=== PATIENT | female | born 1970 | race Caucasian/White ===

== ENCOUNTER 2019-05-13 11:07 | Observation (INO) | payer OTHER ==
--- NOTE | 2019-05-13 11:51 | ER ---
Nurse's Notes [facility] Name: Ludin Mayes Age: 48 yrs Sex: Female : 1970 Arrival Date: 05/13/2019 Time: 11:12 Bed 23 Private MD: Jose Drew Diagnosis: Other chest pain;Type 2 diabetes mellitus;Essential (primary) hypertension;Abdominal tenderness Presentation: 05/13 11:26 Presenting complaint: Patient states: right-sided chest pain radiating down right arm. aa5 Right lower back pain radiating to right groin. Pt reports pain began today. Reports nausea, denies vomiting. 11:26 Acuity: THEODORE 3 aa5 11:26 Transition of care: patient was not received from another setting of care. Onset of aa5 symptoms was May 13, 2019. Risk Assessment: Do you want to hurt yourself or someone else? Patient reports no desire to harm self or others. Initial Sepsis Screen: Does the patient meet any 2 criteria? No. Patient's initial sepsis screen is negative. Does the patient have a suspected source of infection? No. Patient's initial sepsis screen is negative. Care prior to arrival: None. 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 - Social history:: Smoking status: Patient uses tobacco products, smokes one-half pack cigarettes per day. - Ebola Screening: : No symptoms or risks identified at this time. - Family history:: not pertinent. Screenin:09 Abuse screen: Denies threats or abuse. Denies injuries from another. Nutritional mg2 screening: No deficits noted. Tuberculosis screening: No symptoms or risk factors identified. Fall Risk IV access (20 points). Ambulatory Aid- None/Bed Rest/Nurse Assist (0 pts). Gait- Weak (10 pts.). Assessment: 12:10 General: Appears uncomfortable, Behavior is cooperative, fussy. Pain: Complains of pain mg2 in right mid back Pain radiates to RLQ Pain currently is 10 out of 10 on a pain scale. Quality of pain is described as aching, Pain began gradually, Is intermittent. Neuro: Level of Consciousness is awake, alert, obeys commands, Oriented to person, place, time, situation. Cardiovascular: Capillary refill < 3 seconds Patient's skin is warm and dry. Respiratory: Airway is patent Respiratory effort is even, unlabored, Respiratory pattern is regular, symmetrical. GI: Reports lower abdominal pain, nausea, vomiting. EENT: No signs and/or symptoms were reported regarding the EENT system. Derm: Skin is intact, is healthy with good turgor, Skin is pink, warm \T\ dry. normal. Musculoskeletal: Circulation, motion, and sensation intact. Capillary refill < 3 seconds. 14:05 Reassessment: dr malone at bedside examining the patient . mg2 14:21 Reassessment: called for report to the floor already but patient is for pelvic mg2 ultrasound first prior to moving her to her room. Vital Signs: 11:28 BP 102 / 66; Pulse 72; Resp 18 S; Temp 97.8(TE); Pulse Ox 99% on R/A; Weight 109.77 kg aa5 (R); Height 5 ft. 6 in. (167.64 cm) (R); Pain 10/10; 13:10 BP 112 / 80; Pulse 70; Resp 18; Temp 98(O); Pulse Ox 98% on R/A; mg2 14:06 BP 133 / 76; Pulse 61; Resp 18; Pulse Ox 100% on R/A; mg2 11:28 Body Mass Index 39.06 (109.77 kg, 167.64 cm) aa5 ED Course: 11:12 Patient arrived in ED. mr 11:12 Jose Drew MD is Private Physician. mr 11:25 Arm band placed on. aa5 11:30 Triage completed. aa5 11:30 EKG completed in triage. Results shown to . aa5 11:36 Mike Cabrera MD is Attending Physician. sonia 11:49 Henny Malone MD is Hospitalizing Provider. sonia 11:50 Initial lab(s) drawn, by ky, sent to lab. Inserted saline lock: 20 gauge in right dh3 antecubital area, using aseptic technique. Blood collected. 11:55 Martínez Knapp, PRAFUL is Primary Nurse. mg2 12:11 XRAY Chest (1 view) In Process Unspecified. EDMS 13:09 No provider procedures requiring assistance completed. Patient admitted, IV remains in mg2 place. Patient maintains SpO2 saturation greater than 95% on room air. 13:10 Patient has correct armband on for positive identification. Pulse ox on. NIBP on. mg2 Administered Medications: 12:09 Drug: Zofran 4 mg Route: IVP; Site: right antecubital; mg2 14:04 Follow up: Response: No adverse reaction; Marked relief of symptoms mg2 12:09 Drug: Benadryl 25 mg Route: IVP; Site: right antecubital; mg2 14:04 Follow up: Response: No adverse reaction; Marked relief of symptoms mg2 14:04 Follow up: Response: No adverse reaction; Marked relief of symptoms mg2 12:09 Drug: SOLU-Medrol 125 mg Route: IVP; Site: right antecubital; mg2 14:04 Follow up: Response: No adverse reaction; Marked relief of symptoms mg2 12:10 Drug: morphine 4 mg Route: IVP; Site: right antecubital; mg2 14:05 Follow up: Response: No adverse reaction; Marked relief of symptoms mg2 12:11 Drug: Aspirin 162 mg Route: PO; mg2 14:05 Follow up: Response: No adverse reaction; Marked relief of symptoms mg2 12:12 Drug: NS 0.9% 1000 ml Route: IV; Rate: 125 ml/hr; Site: right antecubital; mg2 14:02 Follow up: IV Status: Infusion continued upon admission mg2 12:25 Drug: Pepcid 20 mg Route: IVP; Site: right antecubital; mg2 14:03 Follow up: Response: No adverse reaction; Marked relief of symptoms mg2 13:00 Drug: Dilaudid 1 mg Route: IVP; Site: right antecubital; mg2 14:03 Follow up: Response: No adverse reaction; Marked relief of symptoms mg2 13:00 Drug: Zofran 4 mg Route: IVP; Site: right antecubital; mg2 14:02 Follow up: Response: No adverse reaction; Marked relief of symptoms mg2 14:01 Drug: Dilaudid 1 mg {Note: ordered by Dr malone.} Route: IVP; Site: right antecubital; mg2 14:22 Follow up: Response: No adverse reaction; Marked relief of symptoms mg2 Outcome: 11:50 Decision to Hospitalize by Provider. [facility] 14:00 Admitted to Tele accompanied by lisa, room 421, with chart, Report called to zeeshan Auguste RN 14:00 Condition: stable 14:00 Instructed on the need for admit, Demonstrated understanding of instructions. mg2 15:06 Patient left the ED. mg2 Signatures: Dispatcher [employer] EDMike Womack MD MD cha Rivera, Mary mr Calderon, Li, RN RN aa5 Vanna Angel 3 Martínez Knapp, RN RN mg2
--- NOTE | 2019-05-13 11:51 | EDPHYS ---
Physician Documentation [facility] Name: Ludin Mayes Age: 48 yrs Sex: Female : 1970 Arrival Date: 05/13/2019 Time: 11:12 Bed 23 Private MD: Jose Drew ED Physician Mike Cabrera HPI: 05/13 11:45 This 48 yrs old Female presents to ER via Ambulatory with complaints of Chest sonia Pain. 11:46 This 48 yrs old Female presents to ER via Ambulatory with complaints of Chest sonia Pain. 11:45 The patient or guardian reports chest pain that is located primarily in the substernal sonia area, anterior chest wall, left. Onset: 1 day(s) ago. The pain radiates to the right arm, 11:46 The patient complains of pain in the right mid back and right low back. The pain sonia radiates to the right mid back and right low back. Onset: The symptoms/episode began/occurred 1 day(s) ago. Modifying factors: The symptoms are alleviated by nothing. the symptoms are aggravated by nothing. The patient presents with pain that is acute, with no known mechanism of injury. The symptoms are located in the right mid back and right low back. 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 - Social history:: Smoking status: Patient uses tobacco products, smokes one-half pack cigarettes per day. - Ebola Screening: : No symptoms or risks identified at this time. - Family history:: not pertinent. ROS: 11:46 Constitutional: Negative for fever, chills, and weight loss, Eyes: Negative for injury, sonia pain, redness, and discharge, ENT: Negative for injury, pain, and discharge, Neck: Negative for injury, pain, and swelling, Cardiovascular: Negative for chest pain, palpitations, and edema, Respiratory: Negative for shortness of breath, cough, wheezing, and pleuritic chest pain, Back: Negative for injury and pain, : Negative for injury, bleeding, discharge, and swelling, MS/Extremity: Negative for injury and deformity, Skin: Negative for injury, rash, and discoloration, Neuro: Negative for headache, weakness, numbness, tingling, and seizure, Psych: Negative for depression, anxiety, suicide ideation, homicidal ideation, and hallucinations, Allergy/Immunology: Negative for hives, rash, and allergies, Endocrine: Negative for neck swelling, polydipsia, polyuria, polyphagia, and marked weight changes. 11:46 Abdomen/GI: Positive for abdominal pain, of the posterior aspect of right lateral abdomen, anterior aspect of right lateral abdomen, right upper quadrant and right lower quadrant. Exam: 11:46 Constitutional: This is a well developed, well nourished patient who is awake, alert, sonia and in no acute distress. Head/Face: Normocephalic, atraumatic. Eyes: Pupils equal round and reactive to light, extra-ocular motions intact. Lids and lashes normal. Conjunctiva and sclera are non-icteric and not injected. Cornea within normal limits. Periorbital areas with no swelling, redness, or edema. ENT: Nares patent. No nasal discharge, no septal abnormalities noted. Tympanic membranes are normal and external auditory canals are clear. Oropharynx with no redness, swelling, or masses, exudates, or evidence of obstruction, uvula midline. Mucous membranes moist. Neck: Trachea midline, no thyromegaly or masses palpated, and no cervical lymphadenopathy. Supple, full range of motion without nuchal rigidity, or vertebral point tenderness. No Meningismus. Chest/axilla: Normal chest wall appearance and motion. Nontender with no deformity. No lesions are appreciated. Cardiovascular: Regular rate and rhythm with a normal S1 and S2. No gallops, murmurs, or rubs. Normal PMI, no JVD. No pulse deficits. Respiratory: Lungs have equal breath sounds bilaterally, clear to auscultation and percussion. No rales, rhonchi or wheezes noted. No increased work of breathing, no retractions or nasal flaring. Abdomen/GI: Soft, non-tender, with normal bowel sounds. No distension or tympany. No guarding or rebound. No evidence of tenderness throughout. Back: No spinal tenderness. No costovertebral tenderness. Full range of motion. Skin: Warm, dry with normal turgor. Normal color with no rashes, no lesions, and no evidence of cellulitis. MS/ Extremity: Pulses equal, no cyanosis. Neurovascular intact. Full, normal range of motion. Neuro: Awake and alert, GCS 15, oriented to person, place, time, and situation. Cranial nerves II-XII grossly intact. Motor strength 5/5 in all extremities. Sensory grossly intact. Cerebellar exam normal. Normal gait. Psych: Awake, alert, with orientation to person, place and time. Behavior, mood, and affect are within normal limits. 11:48 Musculoskeletal/extremity: DVT Exam: No signs of deep vein thrombosis. no pain, no sonia swelling, no tenderness, negative Homans' sign noted on exam, no appreciated bluish discoloration, no erythema, no increased warmth. Vital Signs: 11:28 BP 102 / 66; Pulse 72; Resp 18 S; Temp 97.8(TE); Pulse Ox 99% on R/A; Weight 109.77 kg aa5 (R); Height 5 ft. 6 in. (167.64 cm) (R); Pain 10/10; 13:10 BP 112 / 80; Pulse 70; Resp 18; Temp 98(O); Pulse Ox 98% on R/A; mg2 14:06 BP 133 / 76; Pulse 61; Resp 18; Pulse Ox 100% on R/A; mg2 11:28 Body Mass Index 39.06 (109.77 kg, 167.64 cm) aa5 MDM: 11:36 Patient medically screened. [facility] 11:48 Data reviewed: vital signs, nurses notes, lab test result(s), EKG, radiologic studies, [facility] CT scan, plain films. 05/13 11:37 Order name: Basic Metabolic Panel; Complete Time: 12:38 [facility] 05/13 11:37 Order name: CBC with Diff; Complete Time: 12:38 [facility] 05/13 11:37 Order name: LFT's; Complete Time: 12:38 sonia 05/13 11:37 Order name: Magnesium; Complete Time: 12:38 [facility] 05/13 11:37 Order name: NT PRO-BNP; Complete Time: 12:38 [facility] 05/13 11:37 Order name: PT-INR; Complete Time: 12:38 [facility] 05/13 11:37 Order name: Troponin (emerg Dept Use Only); Complete Time: 12:38 [facility] 05/13 11:37 Order name: XRAY Chest (1 view); Complete Time: 12:38 [facility] 05/13 11:37 Order name: Lipase; Complete Time: 12:38 [facility] 05/13 11:45 Order name: CT Aorta for Dissection [facility] 05/13 11:50 Order name: Urine Culture [facility] 05/13 13:23 Order name: CT EDIN 05/13 13:42 Order name: US Transvaginal Study (Probe): right ovary [facility] 05/13 11:37 Order name: EKG; Complete Time: 11:38 [facility] 05/13 11:37 Order name: Cardiac monitoring; Complete Time: 11:54 [facility] 05/13 11:37 Order name: EKG - Nurse/Tech; Complete Time: 11:54 [facility] 05/13 11:37 Order name: IV Saline Lock; Complete Time: 11:54 [facility] 05/13 11:37 Order name: Labs collected and sent; Complete Time: 11:54 [facility] 05/13 11:37 Order name: O2 Per Protocol; Complete Time: 11:54 [facility] 05/13 11:37 Order name: O2 Sat Monitoring; Complete Time: 11:54 [facility] Administered Medications: 12:09 Drug: Zofran 4 mg Route: IVP; Site: right antecubital; mg2 14:04 Follow up: Response: No adverse reaction; Marked relief of symptoms mg2 12:09 Drug: Benadryl 25 mg Route: IVP; Site: right antecubital; mg2 14:04 Follow up: Response: No adverse reaction; Marked relief of symptoms mg2 14:04 Follow up: Response: No adverse reaction; Marked relief of symptoms mg2 12:09 Drug: SOLU-Medrol 125 mg Route: IVP; Site: right antecubital; mg2 14:04 Follow up: Response: No adverse reaction; Marked relief of symptoms mg2 12:10 Drug: morphine 4 mg Route: IVP; Site: right antecubital; mg2 14:05 Follow up: Response: No adverse reaction; Marked relief of symptoms mg2 12:11 Drug: Aspirin 162 mg Route: PO; mg2 14:05 Follow up: Response: No adverse reaction; Marked relief of symptoms mg2 12:12 Drug: NS 0.9% 1000 ml Route: IV; Rate: 125 ml/hr; Site: right antecubital; mg2 14:02 Follow up: IV Status: Infusion continued upon admission mg2 12:25 Drug: Pepcid 20 mg Route: IVP; Site: right antecubital; mg2 14:03 Follow up: Response: No adverse reaction; Marked relief of symptoms mg2 13:00 Drug: Dilaudid 1 mg Route: IVP; Site: right antecubital; mg2 14:03 Follow up: Response: No adverse reaction; Marked relief of symptoms mg2 13:00 Drug: Zofran 4 mg Route: IVP; Site: right antecubital; mg2 14:02 Follow up: Response: No adverse reaction; Marked relief of symptoms mg2 14:01 Drug: Dilaudid 1 mg {Note: ordered by Dr malone.} Route: IVP; Site: right antecubital; mg2 14:22 Follow up: Response: No adverse reaction; Marked relief of symptoms mg2 Disposition: 05/13/19 11:50 Hospitalization ordered by Henny Malone for Observation. Preliminary diagnosis are Other chest pain, Type 2 diabetes mellitus, Essential (primary) hypertension, Abdominal tenderness. - Bed requested for Telemetry/MedSurg (observation). - Status is Observation. mg2 - Condition is Stable. - Problem is new. - Symptoms have improved. UTI on Admission? No Signatures: Dispatcher [employer] EDMS Meagan Mccain Corey, MD MD cha Calderon, Audri RN RN aa5 Martínez Knapp RN RN mg2 Corrections: (The following items were deleted from the chart) 13:00 11:50 Hospitalization Ordered by Henny Malone MD for Observation. Preliminary diagnosis bd is Other chest pain; Type 2 diabetes mellitus; Essential (primary) hypertension; Abdominal tenderness. Bed requested for Telemetry/MedSurg (observation). Status is Observation. Condition is Stable. Problem is new. Symptoms have improved. UTI on Admission? No. sonia 15:06 13:00 05/13/2019 11:50 Hospitalization Ordered by Henny Malone MD for Observation. mg2 Preliminary diagnosis is Other chest pain; Type 2 diabetes mellitus; Essential (primary) hypertension; Abdominal tenderness. Bed requested for Telemetry/MedSurg (observation). Status is Observation. Condition is Stable. Problem is new. Symptoms have improved. UTI on Admission? No. roc
[2019-05-13] MEDS ORDERED: METHYLPREDNISOLONE 125 MG INJ ONE (11:59)
[2019-05-13] MEDS ORDERED: ASPIRIN EC 81 MG TAB PO ONE (12:00)
[2019-05-13] MEDS ORDERED: MORPHINE 4 MG/ML SYR ONE (12:00)
[2019-05-13] MEDS ORDERED: ONDANSETRON 4 MG/2 ML VIAL ONE ×2 (12:00→12:51)
[2019-05-13] MEDS ORDERED: DIPHENHYDRAMINE 50 MG/ML VIAL ONE (12:00)
[2019-05-13] MEDS ORDERED: FAMOTIDINE 20 MG/2 ML VIAL IV ONE (12:00)
[2019-05-13] MEDS ORDERED: NA CHLORIDE 0.9% 1,000 ML ONE (12:01)
[2019-05-13 12:08] LABS: Basophils % 0.8 % (0-1.3); Hematocrit 37.1 % (36.0-45.0); Lymphocytes % 25.8 % (15.3-44.8); RBC Red Blood Cell Count 4.93 M/uL (3.86-4.86)
[2019-05-13 12:16] LABS: Protime INR 0.94
--- NOTE | 2019-05-13 12:19 | RAD REPORT ---
EXAM DESCRIPTION: RAD - Chest Single View - 05/13/2019 12:11 pm CLINICAL HISTORY: Cough;Chest pain Chest pain. COMPARISON: No comparisons FINDINGS: Portable technique limits examination quality. The lungs are emphysematous but grossly clear. The heart is normal in size. No displaced fractures. IMPRESSION: No acute intrathoracic process suspected.
[2019-05-13 12:26] LABS: ALT/SGPT 24 U/L (12-78); AST/SGOT 15 U/L (15-37); Albumin 4.2 g/dL (3.4-5.0); Alkaline Phosphatase 133 U/L (45-117); BUN Blood Urea Nitrogen 13 mg/dL (7-18); Bicarbonate 23 mmol/L (21-32); Bilirubin Direct 0.1 mg/dL (0-0.2); Bilirubin Total 0.5 mg/dL (0.2-1.0); Glucose Level 122 mg/dL (74-106); Lipase 104 U/L (73-393); Magnesium 1.8 mg/dL (1.8-2.4); NT PRO-BNP 91 pg/mL (<125); Potassium 3.9 mmol/L (3.5-5.1); Protein, Total 9.1 g/dL (6.4-8.2); Sodium Level 130 mmol/L (136-145); Troponin (Emerg Dept Use Only) < 0.02 ng/mL (0.0-0.045)
[2019-05-13] MEDS ORDERED: HYDROMORPHONE HCL 1 MG/ML INJ ONE ×2 (12:51→13:57)
--- NOTE | 2019-05-13 13:18 | RAD REPORT ---
EXAM DESCRIPTION: CT - Angio Aorta For Dissection - 05/13/2019 1:06 pm CLINICAL HISTORY: Chest pain radiating to the back. Dissection;PE COMPARISON: No comparisons TECHNIQUE: CT angiography of the aorta was performed with MIPs. All CT scans are performed using dose optimization technique as appropriate and may include automated exposure control or mA/KV adjustment according to patient size. FINDINGS: A left aortic arch is present with bovine branching pattern of the great vessels.No acute aortic finding is seen such as aneurysm, penetrating ulcer or dissection. The celiac axis, SMA, MEGAN and renal arteries are patent. No evidence of pulmonary embolism. 7 mm noncalcified nodule is present in the superior segment right lower lobe. The lungs are otherwise clear without evidence of nodule, mass or infiltrate. The liver demonstrates mild enlargement, fatty infiltration in a heterogenous enhancement pattern.Cho lecystectomy clips.The spleen, pancreas, adrenal glands and kidneys are within normal limits for aden rial phase imaging. No bowel obstruction, free fluid or abscess.Normal appendix seen.No pathologic enlarged lymphadenopat hy identified.The right ovary appears enlarged measuring up to 7 cm. Hardware is present about the left hip. IMPRESSION: No acute aortic finding is demonstrated. The liver appears enlarged with diffuse fatty infiltration in a heterogenous enhancement pattern. Thi s may indicate underlying hepatic inflammation or infection. Correlation with LFTs suggested. Enlargement of the right ovary is noted measuring up to 7 cm. Follow-up pelvic ultrasound could be ob tained for further workup.
[2019-05-13] MEDS ORDERED: ACETAMINOPHEN 500 MG TAB PO PRN (13:39)
[2019-05-13] MEDS ORDERED: NITROGLYCERIN 0.4 MG/TAB SL PRN (13:39)
[2019-05-13] MEDS ORDERED: MORPHINE 2 MG/ML SYR IV PRN (13:39)
--- NOTE | 2019-05-13 15:25 | RAD REPORT ---
EXAM DESCRIPTION: US - Transvaginal Study Probe - 05/13/2019 2:46 pm CLINICAL HISTORY: Abdominal pain, pelvic pain COMPARISON: CT imaging May 13 2019 TECHNIQUE: Endovaginal sonography was performed. FINDINGS: Retroflexed uterus is identified measuring 9.3 x 4.6 x 5.2 cm. Endometrium is 6 mm. No end ometrial based mass or polyp identifiable. A 2.4 centimeter oval heterogeneous mass is present serosa l margin of the posterior lower uterus. This is most likely a small fibroid. Corresponding finding is seen on the CT study. Left ovary is obscured by bowel. On review of the CT study, a normal left ovary is seen. Right ovary is enlarged measuring 6.7 x 3.5 x 6.4 cm. This enlarged ovary matches the CT study. There are numerous simple and complex cysts within the right ovary. A solid mass of the right ovary is not identifiable. Patient has no prior imaging of the right ovary. These appear to be individual cysts r ather than a single large multi-septated cystic mass. However, in a patient this age, continued close follow-up is needed. IMPRESSION: Right ovary is enlarged containing numerous simple and complex cysts. Solid mass of the right ovary is not identifiable. Right ovary findings appear to be multiple cysts rather than a single complex septated cystic mass. G iven the patient's age, continued close follow-up is needed. Re-evaluation in 2- 3 months is recommen ded. Left ovary was obscured by bowel. CT imaging of the same date showed normal left ovary. Uterus contains a small subserosal fibroid posterior lower uterus.
--- NOTE | 2019-05-13 15:55 | EKG ---
Test Date: 2019-05-13 Test Time: 11:28:51 Panelbeater: TONIA MEASUREMENT RESULTS: Intervals: Rate: 68 ME: 142 QRSD: 78 QT: 428 QTc: 455 [place]: P: 28 ME: 142 QRS: 59 T: 48 INTERPRETIVE STATEMENTS: Sinus rhythm with occasional premature ventricular complexes Low voltage QRS Borderline ECG No previous ECG available for comparison Electronically Signed On 05-13-19 15:54:16 CDT by Heriberto Dee
[2019-05-13] MEDS: FENTANYL CITR 100 MCG/2 ML IV PRN ×2 (15:59→19:55)
[2019-05-13] MEDS: NA CHLORIDE 0.9% 1,000 ML IV SCH (16:00)
[2019-05-13 16:27] VITALS: BMI 39.0
[2019-05-13] MEDS ORDERED: INSULIN -REGULAR HUMAN 50 UNIT/0.5 ML ML SQ SCH (18:00)
[2019-05-13] MEDS ORDERED: HOME MED 1 EA UNK (Pravastatin Sodium [Pravachol] 40 MG) PO SCH (21:00)
[2019-05-13] MEDS ORDERED: METOPROLOL TAR 25 MG TAB PO SCH (21:00)
[2019-05-13] MEDS ORDERED: ZOLPIDEM TARTRATE 10 MG TABLET PO SCH (21:00)
[2019-05-13] MEDS: atenoloL 25 MG TAB PO SCH (21:13)
[2019-05-13] MEDS: ATORVASTATIN 10 MG TAB PO SCH (21:13)
[2019-05-13] MEDS: ESCITALOPRAM 20 MG TAB PO SCH (21:14)
[2019-05-13] MEDS: MONTELUKAST 10 MG TAB PO SCH (21:14)
[2019-05-13] MEDS: INSULIN -REGULAR HUMAN 50 UNIT/0.5 ML ML SQ SCH (21:14)
[2019-05-13] MEDS: ATORVASTATIN 40 MG TAB PO SCH (21:14)
[2019-05-13] MEDS: ZOLPIDEM TARTRATE 10 MG TABLET PO PRN (21:23)
[2019-05-13] MEDS: QUETIAPINE 100MG TAB PO SCH (21:24)
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
[2019-05-14] MEDS: FENTANYL CITR 100 MCG/2 ML IV PRN ×4 (00:14→13:58)
--- NOTE | 2019-05-14 01:31 | HP ---
Date of Admission: 05/13/2019 Primary Care Physician: Dr. Drew Consultants: Dr. Dee, Cardiology. Chief Complaint: Chest pain, substernal and low back pain. History Of Present Illness: The patient is a 48-year-old female with past medical history of hyperte nsion, diabetes, history of PVCs, as well as morbid obesity, who comes in with sudden onset of chest pain in the substernal region radiating to the right shoulder. Patient also reports right flank pain that is radiating toward the front in the pelvis. It should be noted that the patient was in [facility] on April 22, for similar symptoms, was ruled out for ACS and then discharged home. She was found to have low magnesium. The patient's workup revealed a sodium of 130. Her initial cardia c enzyme was negative. White blood cell count was elevated at 11.7. Patient's imaging studies inclu ding CT dissection, was negative for any acute aortic finding, did show diffuse fatty infiltration of the liver. She has an enlarged right ovary measuring 7 cm. Patient was given morphine and Dilaudid x2, which did not alleviate her pain. When seen in the ER, she was awake, alert, oriented x3, compl aining of some pain. Past Medical History: Diabetes mellitus type 2, [id number]-ifeeavmai; hypertension; morbid obesity; history of PVCs and heart fluttering for which she takes atenolol; menorrhagia. Patient also has in somnia and generalized anxiety disorder. Past Surgical History: Cholecystectomy. Allergies: TO SHELLFISH AND PENICILLIN, WHICH CAUSES UPSET STOMACH. Medications: List reviewed. Social History: Patient smokes tobacco, cigarettes 1 pack in about 2-3 days. Has been smoking for t he past 24 years. Denies any alcohol use and no IV drug abuse. Family History: Coronary artery disease runs in the family along with kidney disease. Father o f heart attack. Patient had first heart attack in age 38. Review of Systems: Ten-point systems reviewed, negative except as per HPI. Physical Examination: Vital Signs: Blood pressure 102/66, pulse 72, respirations 18, temperature 97.8, O2 99% on room air. General: Morbidly obese female. BMI is 39. Awake, alert, and oriented x3. Moderate distress due t o pain. Ill-appearing female. HEENT: Normocephalic, atraumatic. PERRLA. EOMI. Moist mucous membranes. Oropharynx is clear. Co njunctivae are anicteric. Neck: Supple. No JVD. Trachea midline. CV: S1, S2. Regular rate and rhythm. Peripheral pulses present. Respiratory: Moving air well bilaterally. No wheezing or stridor. No use of accessory muscles. Gastrointestinal: Abdomen is soft, nontender, nondistended. Positive bowel sounds. No guarding or rigidity. Extremities: No clubbing, cyanosis. The patient has trace pedal edema. No calf tenderness. Neuro: Cranial nerves 2 through 12 intact grossly. No focal neurological deficits. Speech is leticia l. Skin: No rashes, normal skin turgor. Musculoskeletal: No point tenderness on the chest wall or the right flank or lower lumbar spine. Ra nge of motion is full. Psych: Mood is anxious. Affect is congruent with mood. Insight and judgment are good. Laboratory Data: WBC 11.7, H and H 12.1 and 37.1, MCV 75.2, MCH 24.4, platelets 582. INR 0.94. Sod ium 130, potassium 3.9, chloride 96, CO2 of 23, BUN 13, creatinine 1.1, glucose 122, calcium 9.6, mag nesium 1.8. Troponin less than 0.02, lipase 104. UA is pending. CT scan aortic dissection shows no acute aortic finding is demonstrated. Liver appears enlarged with diffuse fatty infiltration and a heterogeneous enhancement pattern. May indicate underlying hepatic inflammation or infection. Corre lation with LFTs suggested enlargement of the right ovary is noted measuring up to 7 cm. Followup pe lvic ultrasound will be obtained for further workup. Chest x-ray personally reviewed shows no acute intrathoracic process. Assessment: A 48-year-old female with, 1.Chest pain, substernal, rule out acute coronary syndrome. Initial cardiac enzymes and EKG are neg ative. We will obtain serial cardiac enzymes and EKG. Consult Cardiology. Start on chest pain guid elines. Morphine and nitro p.r.n. We will obtain echocardiogram. 2.Right flank pain, unclear etiology. Patient does have some heterogeneous changes on CT regarding the liver, possible hepatic inflammation or infection; however, LFTs are normal. There is no hyperbi lirubinemia. Lipase is normal as well. Patient has had a cholecystectomy. 3.Enlarged right ovary. We will obtain pelvic ultrasound. 4.Hyponatremia. We will start on IV fluids and continue to monitor. 5.Morbid obesity. Patient's BMI is 39. Has comorbid conditions including diabetes and hypertension . Patient has been counseled. 6.Essential hypertension, stable. We will resume home medications as appropriate. 7.History of premature ventricular contractions. Patient is on atenolol. 8.Diabetes mellitus type 2, non-insulin requiring. We will continue with sliding scale insulin and monitor blood glucose levels. 9.Microcytic hypochromic anemia likely due to menorrhagia. Hemoglobin is presently within normal li mits at 12.1. The patient has had transfusions in the past. Patient has upcoming outpatient appoint ment with Gynecology for her menorrhagia. She has never attained menopause. Will follow up with pel hemal ultrasound as well. No active bleeding at this time. 10.Deep venous thrombosis prophylaxis with Lovenox. Plan: Admit patient to Med-Surg, place as observation. JUAN Voice ID: [id number]
[2019-05-14] MEDS: NA CHLORIDE 0.9% 1,000 ML IV SCH ×4 (02:11→21:00)
[2019-05-14 04:29] LABS: Absolute Lymphocytes (CBC) 1.1 K/uL (0.7-4.9); Basophils % 0.2 % (0-1.3); Hematocrit 30.6 % (36.0-45.0); Lymphocytes % 11.6 % (15.3-44.8); MPV 8.3 fL (7.6-11.3)
[2019-05-14 04:48] LABS: Potassium 4.5 mmol/L (3.5-5.1)
[2019-05-14] MEDS: INSULIN -REGULAR HUMAN 50 UNIT/0.5 ML ML SQ SCH ×4 (07:30→21:00)
[2019-05-14] MEDS ORDERED: REGADENOSON 0.4 MG/5 ML SYR IV ONE (08:13)
[2019-05-14 08:57] LABS: Platelet Estimate ADEQ
[2019-05-14 08:58] LABS: Anisocytosis 1+; Blood Morphology Comment NOTED (NOT SEEN); Platelets, Giant FEW
[2019-05-14] MEDS ORDERED: HOME MED 1 EA UNK (Losartan/Hydrochlorothiazide [Losartan-Hctz 100-12.5 Mg Tab] 1 TAB) PO SCH (09:00)
[2019-05-14] MEDS ORDERED: lisinopriL 10 MG TAB PO SCH (09:00)
--- NOTE | 2019-05-14 09:59 | ECHO ---
HEIGHT: 5 ft 6 in WEIGHT: 242 lb 0 oz DATE OF STUDY: 05/14/[address]: Henny Astorga MD 2-DIMENSIONAL: YES M.MODE: YES DOPPLER: YES COLOR FLOW: YES TDS: PORTABLE: DEFINITY: BUBBLE STUDY: DIAGNOSIS: CHEST PAIN CARDIAC HISTORY: CATHERIZATION: NO SURGERY: NO PROSTHETIC VALVE: NO PACEMAKER: NO MEASUREMENTS (cm) DIASTOLIC (NORMALS) SYSTOLIC (NORMALS) IVSd 1.2 (0.6-1.2) LA Diam 4.0 (1.9-4.0) LVEF 72% LVIDd 4.6 (3.5-5.7) LVIDs 2.7 (2.0-3.5) %FS 41% LVPWd 1.1 (0.6-1.2) Ao Diam 2.4 (2.0-3.7) 2 DIMENSIONAL ASSESSMENT: RIGHT ATRIUM: NORMAL LEFT ATRIUM: NORMAL RIGHT VENTRICLE: NORMAL LEFT VENTRICLE: NORMAL TRICUSPID VALVE: NORMAL MITRAL VALVE: NORMAL PULMONIC VALVE: NORMAL AORTIC VALVE: NORMAL PERICARDIAL EFFUSION: NONE AORTIC ROOT: NORMAL LEFT VENTRICULAR WALL MOTION: NORMAL DOPPLER/COLOR FLOW: TRACE TRICUSPID REGURGITATION. COMMENTS: TRACE TRICUSPID REGURGITATION NORAML VARIANT. NORMAL LEFT VENTRICULAR SIZE AND FUNCTION. NO WALL MOTION ABNORMALITY. NO EFFUSION. TECHNOLOGIST: ANUSHKA HAN
[2019-05-14] MEDS: ONDANSETRON 4 MG/2 ML VIAL IV PRN ×2 (10:02→20:38)
[2019-05-14] MEDS: LOSARTAN POTASSIUM 50 MG TABLET PO SCH (10:03)
[2019-05-14] MEDS: LOSARTAN/HCTZ 50-12.5 PO SCH (10:03)
[2019-05-14] MEDS: ASPIRIN EC 81 MG TAB PO SCH (10:03)
[2019-05-14] MEDS: ENOXAPARIN 40 MG/0.4 ML SQ SCH (10:04)
--- NOTE | 2019-05-14 10:04 | RAD REPORT ---
EXAM DESCRIPTION: NM - Rest Stress Cardiac Imaging - 05/14/2019 9:30 am CLINICAL HISTORY: Chest pain. COMPARISON: None. TECHNIQUE: The patient was administered approximately 10mCi of Tc 99m Sestamibi prior to resting SPE CT imaging of the heart. The patient was then administered approximately 30 mCi of Tc 99m Sestamibi f ollowing exercise or pharmacologic stress. Multiplanar SPECT images were reviewed. FINDINGS: There is uniformity of radiotracer uptake involving the entire left ventricular myocardiu m on rest and stress images. The left ventricular ejection fraction equals 70 % IMPRESSION: Negative for a myocardial perfusion defect
--- NOTE | 2019-05-14 10:12 | TREADPHA ---
DX: CHEST PAIN Date of Study: 05/13/2019 Ht: 5 6 Wt: 242 lb 0 oz Consulting Physician: YARON MEDICATIONS: TYLENOL, ASPIRIN, TENORMIN, LIPITOR, LOVENOX, LEXAPRO, SUBLIMAZE, HYZAAR, NOVOLIN-R, COZAAR, SINGULAIR, MORPHINE, NITROSTAT, SEROQUEL, AMBIEN HISTORY: HYPERTENSION, NON-INSULIN DEPENDENT DIABETES MELLITUS PHYSICIAL EXAMINATION: RESTING B.P.: 140/78 RESTING H.R.: 60 RESTING EKG: NORMAL PROTOCOL: LEXISCAN EXERCISE TIME: 3:30 B.P. AT PEAK STRESS: 140/74 IMPRESSION: LEXISCAN STRESS TEST PERFORMED. CARDIOLITE INJECTED PER PROTOCOL. NO SUPRAVENTRICULAR TACHYCARDIA, NO VENTRICULAR TACHYCARDIA, NO ARRHYTHMIAS NOTED. PATIENT DENIED CHEST PAIN. TOLERATED PROCEDURE WELL. PLEASE SEE NUCLEAR MEDICINE REPORT.
--- NOTE | 2019-05-14 15:35 | RAD REPORT ---
EXAM DESCRIPTION: RAD - Pelvis - 05/14/2019 3:15 pm CLINICAL HISTORY: Right-sided pelvic pain COMPARISON: None. TECHNIQUE: AP imaging of the pelvis was obtained. FINDINGS: No acute fracture. Hardware is in place from prior acetabular fracture repair on the left. No acute bone or joint finding. Phleboliths is seen along the pelvic floor. IMPRESSION: Negative pelvis examination for acute or suspicious finding.
--- NOTE | 2019-05-14 15:35 | RAD REPORT ---
EXAM DESCRIPTION: RAD - Hip Right 2 View - 05/14/2019 3:15 pm CLINICAL HISTORY: Right hip pain COMPARISON: None. FINDINGS: AP and frog-leg views of the right hip were obtained. There is no fracture or dislocation . No acute or destructive bony process seen. IMPRESSION: Negative right hip examination for acute findings.
[2019-05-14] MEDS: HYDROCODONE/APAP 7.5/325 MG TAB PO PRN ×2 (17:06→20:38)
[2019-05-14] MEDS: ZOLPIDEM TARTRATE 10 MG TABLET PO PRN (20:27)
[2019-05-14] MEDS: ATORVASTATIN 40 MG TAB PO SCH (20:28)
[2019-05-14] MEDS: ESCITALOPRAM 20 MG TAB PO SCH (20:28)
[2019-05-14] MEDS: MONTELUKAST 10 MG TAB PO SCH (20:28)
[2019-05-14] MEDS: atenoloL 25 MG TAB PO SCH (20:28)
[2019-05-14] MEDS: ATORVASTATIN 10 MG TAB PO SCH (20:28)
--- NOTE | 2019-05-14 21:03 | PN ---
Date of Progress Note: 05/14/2019 History Of Present Illness: Ms. Mayes is a 48, came in with atypical chest pain, hip pain, has a his tory of hypertension, diabetes, dyslipidemia, tobacco abuse. Dr. Dee ordered an echocardiogram an d a Lexiscan for today. Both of those studies were normal. She may be having a spine issues conside ring she had chest pain and hip pain at about the same time, which does not sound vascular. From our standpoint, she can go home. Follow up with Dr. Drew. Possibly get a spine MRI as an outpatient. ADDY/JERAD Voice ID: [id number] Report ID: [id number]
[2019-05-14 21:44] VITALS: O2SAT 96
[2019-05-15] MEDS: QUETIAPINE 100MG TAB PO SCH (00:22)
[2019-05-15] MEDS: HYDROCODONE/APAP 7.5/325 MG TAB PO PRN ×3 (01:13→08:51)
[2019-05-15] MEDS: NA CHLORIDE 0.9% 1,000 ML IV SCH (01:13)
--- NOTE | 2019-05-15 03:39 | DS ---
Consultants: Dr. Zaidi and Dr. Dee with Cardiology. Procedures: Cardiac stress test on 05/14/2019, negative for any stress-induced ischemia. Discharge Diagnoses: 1.Chest pain, acute coronary syndrome ruled out. 2.Right flank pain, unclear etiology. 3.Enlarged right ovary with multiple cysts. 4.Uterine fibroids. 5.Menorrhagia. 6.Hyponatremia, corrected. 7.Essential hypertension, stable. 8.Morbid obesity, BMI 39 with significant comorbid conditions including diabetes and hypertension. 9.History of PVCs on atenolol. 10.Diabetes mellitus type 2, [id number]-zdzbnewmx, stable. 11.Microcytic hypochromic anemia due to menorrhagia. 12.A 7 mm nodule, right lower lobe of the lung. Hospital Course: Patient is a 48-year-old female with past medical history of morbid obesity, diabet es, hypertension, history of PVCs, comes in with sudden onset of chest pain radiating to the right sh oulder. Also, reports right flank pain radiating towards the front of the pelvis. Patient was admit deangelo to rule out any sort of coronary syndrome. Cardiac enzymes were negative x3. Due to her risk fa ctors, Cardiology was consulted and they recommended a stress test. The stress test was negative for any stress-induced ischemia. CT scan of the aorta was also done to rule out any aortic dissection w as negative, did show a 7 mm noncalcified nodule in the superior segment of the right lower lobe. Damian hugo's CT scan also did not show any thoracolumbar compression fracture, did show some mild thoracic spondylosis. No pelvic fracture was seen. Heart rate was noted about the left acetabulum. Patient continued to have significant amount of pain, not controlled with morphine or Dilaudid, was switched over to fentanyl. She also found to have enlarged right ovary on the CT scan. Therefore, pelvic ul trasound was done, which showed right ovary with multiple cysts rather than single complex septated c ystic mass. She will need to follow up with TAMPING MACHINE OPERATOR. She has an appointment made for early in May. Uterus also showed a subserosal fibroid, which is likely cause of her menorrhagia and heavy bleedin g. Patient was encouraged to start on iron supplements due to her microcytosis. Her hemoglobin init ially was 12.1 with the dilutional activity and down to 10.2. No bleeding in the hospital setting. Patient also has had recent mammogram, which was negative and colonoscopy. Patient was then cleared for discharge, sent home in a stable condition. Activity: As tolerated. Medications: As per medication reconciliation list. Followup: Follow up with PCP in 2-3 days. Follow up with manager core, Dr. Dee in 2 weeks. Foll ow up with TAMPING MACHINE OPERATOR as scheduled, return to ER for worsening condition. Medications: As per medication reconciliation list. Physical Examination: Vital Signs: Stable. Afebrile. CV: S1, S2. Respiratory: Moving air well bilaterally. Abdomen: Abdomen is soft, nontender, nondistended. Positive bowel sounds. Extremities: No clubbing, cyanosis, or edema. Neurologic: Nonfocal. Musculoskeletal: No point tenderness to the low back. /JERAD Voice ID: [id number] Report ID: [id number]
[2019-05-15] MEDS: INSULIN -REGULAR HUMAN 50 UNIT/0.5 ML ML SQ SCH (07:30)
[2019-05-15] MEDS: ENOXAPARIN 40 MG/0.4 ML SQ SCH (08:27)
[2019-05-15] MEDS: LOSARTAN/HCTZ 50-12.5 PO SCH (08:28)
[2019-05-15] MEDS: ASPIRIN EC 81 MG TAB PO SCH (08:28)
[2019-05-15] MEDS: LOSARTAN POTASSIUM 50 MG TABLET PO SCH (08:29)
[2019-05-15 08:33] VITALS: BP 103/70
[2019-05-15 09:08] VITALS: TEMP 97.3
--- NOTE | 2019-05-15 22:25 | PN ---
Date of Progress Note: 05/15/2019 Subjective: Patient seen and examined. Chart reviewed and case discussed with RN and Dr. Flores. Patient unable to be discharged yesterday due to intractable pain. Feels better today. Still bonnie g some pain on the right flank radiating to the front. Medications: List reviewed. Physical Examination: Vital Signs: Temperature 97.3, heart rate 55, blood pressure 103/70, respirations 18, O2 saturations 96% on room air. General: Awake, alert, and oriented x3. No acute distress. Morbidly obese female. CV: S1, S2. Respiratory: Moving air well bilaterally. No wheezing. Gastrointestinal: Abdomen is soft, nontender, nondistended. Positive bowel sounds. Extremities: No clubbing, cyanosis, or edema. Neurologic: Nonfocal. Musculoskeletal: No lumbar spine tenderness. No CVA tenderness. Laboratory Data: Blood sugar levels 101. Urine culture growing out mixed manolo. Assessment And Plan: A 48-year-old female with: 1.Chest pain, acute coronary syndrome, ruled out. 2.Right flank pain, unclear etiology, may be related to right ovary cyst. 3.Enlarged right ovary with multiple cysts. 4.Uterine fibroids. 5.Menorrhagia. 6.Hyponatremia, corrected. 7.Essential hypertension, stable. 8.Morbid obesity. BMI 39 with significant comorbid conditions including diabetes and hypertension. 9.History of PVCs, on atenolol. 10.Diabetes mellitus type 2, vwc-jphkndo-etkvwwkep, stable. 11.Microcytic hypochromic anemia due to menorrhagia. 12.Right lower lobe nodule 7 mm in the lung. Recommend repeat CT scan in 3 months for resolution an d maintenance. The patient's appointment with Dr. Flores has been moved up from June to . Dr[place] Flores [place] is out of the country; however, I did speak to her. Patient's appoi ntment will be expedited to June 02. Discharged to home. /JERAD Voice ID: [id number] Report ID: [id number]
--- OUTSIDE RECORDS SUMMARY | 2019-05-24 16:48 | XMS REPORT ---
:1970 [facility] Address [address] [place] [address] Care Team Providers Name Role Phone Unavailable Unavailable Unavailable Problems This patient has no known problems. Allergies, Adverse Reactions, Alerts This patient has no known allergies or adverse reactions. Medications This patient has no known medications. Results Test Description Test Time Test Comments Text Results Atomic Results Result Comments SCR MAMM BILATERAL JESSY 2018-12-26 12:57:24 - SCR MAMM BILATERAL JESSY CAD CAD DIGITAL DIGITALBILATERAL DIGITAL SCREENING MAMMOGRAM 3D/2D WITH CAD: 12/23/2018CLINICAL: Asymptomatic. Digital breast tomosynthesis was performed in addition to routine CC and MLO views. Current mammographic images were evaluated by either a [place] M-Vu or a bepretty ImageChecker CAD (computer aided detection system). Comparison is made to exams dated 11/28/2016 mammogram - [facility], 09/23/2014 mammogram - [facility], and 09/07/2013 mammogram - [facility]. There are scattered fibroglandular tissues in both breasts. No suspicious mass, architectural distortion, malignant type calcification, or lymph node abnormality detected. Breast architecture is stable compared to prior exams.IMPRESSION: NEGATIVEThere is no mammographic evidence of malignancy. Resume annual screening mammography in one year. Fatuma chavez/charles:12/26/2018 12:57:24 Hyperbaric Technologist: Nilsa Arora MM, [facility]: BIRADS 1-2 Normal Mammogram BI-RADS: 1 Negative
== END 2019-05-15 12:49 | disposition home or self-care (01) ==
LOC: ER 11:07 → ERHOLD 12:34 → 4TH 13:40
PROVIDERS: ADMIT Family Medicine; ATTEND Family Medicine
DX: R07.89 Other chest pain (principal); D25.9 Leiomyoma of uterus, unspecified; I10 Essential (primary) hypertension; E11.9 Type 2 diabetes mellitus without complications; N83.8 Other noninflammatory disorders of ovary, fallopian tube and broad ligament; E87.1 Hypo-osmolality and hyponatremia; D50.9 Iron deficiency anemia, unspecified; N83.201 Unspecified ovarian cyst, right side; N92.0 Excessive and frequent menstruation with regular cycle; R91.1 Solitary pulmonary nodule; E66.01 Morbid (severe) obesity due to excess calories; F17.210 Nicotine dependence, cigarettes, uncomplicated; Z68.39 Body mass index [BMI] 39.0-39.9, adult
CPT/HCPCS: 96361; 93005; 93017; 93306; 87088; 85025 ×2; 87086; 80048 ×2; 36415; 83735; 85610; 80061; 82947 ×6; 80076; 84484 ×3; 83690; 83880; 71275; 74175; 71045; 72170; 73502; 76830; 94760 ×5; 78452; 96375; 96374; 99285; Q9967; J1200; J1650 ×2; J3010 ×6; J1170 ×2; J2785; J7030 ×5; J2930; J2405 ×4; A9500; G0378 ×4; J2270